=== PATIENT | female | born 1975 | race Hispanic/Latino ===

== ENCOUNTER 2016-11-27 14:36 | Emergency (ER) | payer SELFPAY ==
[2016-11-27] MEDS ORDERED: Morphine Sulfate 2 MG/ML SYRINGE ONE (15:30)
[2016-11-27 15:37] LABS: #Basophils 0.1 thou/uL (0.0-0.2); #Eosinphils 0.3 thou/uL (0.0-0.7); #Lymphocytes 3.2 thou/uL (1.20-3.40); #Monocytes 0.5 thou/uL (0.11-0.59); #Neutrophils 5.5 thou/uL (1.40-6.50); %Basophils 1.2 % (0.0-1.0); %Eosinophils 3.2 % (0.0-10.0); Hematocrit 41.6 % (36.0-47.0); Mean Platelet Volume 7.8 fL (7.4-10.4); Red Blood Cell (RBC) Count 4.71 mill/uL (4.20-5.40); White Blood Cell (WBC) Count 9.5 thou/uL (4.8-10.8)
[2016-11-27] MEDS ORDERED: Ondansetron HCl/PF 4 MG/2 ML Vial ONE (15:47)
[2016-11-27 15:57] LABS: ALT (SGPT) 30 U/L (0-55); AST (SGOT) 29 U/L (5-34); Alkaline Phosphatase 140 U/L (40-150); Anion Gap 15 mmol/L (10-20); BUN (Urea Nitrogen) 5 mg/dL (7.0-18.7); Bilirubin, Total 0.2 mg/dL (0.2-1.2); Calc. Creatinine Clearance 0 mL/min (70-130); Calcium 9.7 mg/dL (7.8-10.44); Carbon Dioxide 23 mmol/L (22-29); Chloride 106 mmol/L (98-107); Estimated GFR-MDRD 89; Globulin 3.1 g/dL (2.4-3.5); Protein, Total 7.4 g/dL (6.0-8.3)
[2016-11-27 16:22] LABS: Bilirubin Negative (Negative); Blood, Urine Negative (Negative); Glucose, Urine (Dipstick) Negative (Negative); Ketone, Urine Negative (Negative); Nitrite Negative (Negative); Protein, Urine (Dipstick) Negative (Neg-Trace); Urobilinogen 0.2 mg/dL (0.2-1.0)
--- NOTE | 2016-11-27 16:53 | CT ---
CT CHEST WITH CONTRAST CT ABDOMEN AND PELVIS WITH CONTRAST: History: Spiral CT of the chest, abdomen, and pelvis was done after a fall. Axial slices were acqu ired after giving IV contrast. Oral contrast was withheld by request. Coronal and sagittal reconst ructions were done afterwards. CT THORAX: The mediastinum appears normal. There is no sign of mediastinal hematoma or aortic injury. No medi astinal mass or adenopathy was seen. No pericardial effusion was seen. Coronary artery calcificati ons were not appreciated. The lungs are fully inflated and clear except for a little bit of depende nt atelectasis posteriorly. There is no sign of parenchymal contusion. The bony thorax appears int act with no sign of fracture in the ribs or spine. IMPRESSION: No acute traumatic findings. CT ABDOMEN AND PELVIS WITH CONTRAST: The liver, spleen, pancreas, adrenal glands, gallbladder, aorta and kidneys showed no acute findings . There was no sign of laceration of hematoma. The bowel is nondistended and shows no sign of obst ruction or inflammatory change. No free air or free fluid was seen. CT of the pelvis shows no free fluid or hematoma. The bony pelvis appears intact as does the lumbar spine. IMPRESSION: No acute traumatic findings. POS: HOME
--- NOTE | 2016-11-27 17:42 | ERRECORD ---
[facility] EMERGENCY RECORD PAST MEDICAL HISTORY (14:57 LGIB) MEDICAL HISTORY: No past medical history. FEMALE SURGICAL HISTORY: Surgical history of hysterectomy. RIGHT PARTIAL KNEE REPLACEMENT. Verified. PSYCHIATRIC HISTORY: Psychiatric history includes, anxiety. SOCIAL HISTORY: Patient drinks socially, rarely, Patient denies drug use, Patient currently uses tobacco, smokes cigarettes, Patient smokes 1/2 packs per day. KNOWN ALLERGIES Phenergan (Unconfirmed): - bp drops promethazine HCl (Unconfirmed) Sulfa (Sulfonamide Antibiotics) (Unconfirmed): Reaction: Hives CURRENT MEDICATIONS (15:01 LGIB) Zoloft: TABLET : Strength - 50 mg : ORAL Patient Dose: 50 mg Oral once a day. VITAL SIGNS VITAL SIGNS: BP: 129/90, Pulse: 105, Resp: 22, Pain: 10, O2 sat: 99 on Room Air, Time: 11/27/2016 15:01. (15:01 LGIB) BP: 117/78, Pulse: 72, Resp: 22, Pain: 8, O2 sat: 98 on Room Air, Time: 11/27/2016 16:06. (16:06 KMOR) BP: 143/86, Pulse: 87, Resp: 20, Pain: 8, O2 sat: 95 on Room Air, Time: 11/27/2016 16:39. (16:39 KMOR) BP: 129/77, Pulse: 68, Resp: 20 (Non-Labored), Temp: 98 (Oral), Pain: 3, O2 sat: 99 on Room Air, Time: 11/27/2016 17:00. (17:00 LGIB) RADIOLOGYINTERPRETATION (16:39 MBRI) CHEST: Chest CT negative, with contrast, no thoracic aortic dissection, no pneumothorax, no hemothorax, Neg. ABDOMEN: Abdomen/pelvis CT scan, with contrast negative, no injuries. 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 MEDICATION ADMINISTRATION SUMMARY Drug Name: morphine injection, Dose Ordered: 4 mg, Route: IV Push, Status: Given, Time: 16:29 11/27/2016, Drug Name: morphine injection, Dose Ordered: 6 mg, Route: IV Push, Status: Given, Time: 15:35 11/27/2016, Drug Name: sodium chloride 0.9 % intravenous, Dose Ordered: 1 L, Route: IV Fluid Infusion, Status: Given, Time: 15:32 11/27/2016, Drug Name: ondansetron HCl intravenous, Dose Ordered: 4 mg, Route: IV Push, Status: Given, Time: 15:32 11/27/2016, Detailed record available in Medication Service section. DOCTOR NOTES (16:40 MBRI) &a-1R&a+25V*p+0X*[id number]*c202B*c15G*c2P*p-0X&a-25V&a+1R Name: Vashti Mejia : 1975 F41 MedRec: [id number] AcctNum: [id number] Prepared: SunNov 27, 2016 17:37 by Interface Page 1 of 2 pMD [facility] EMERGENCY RECORD TEXT: Pt re-evaluated at this time and presents no concerning neck pain or tenderness. Pt is able to move neck in nml ROM without concerning findings of pain. Clincally pt is awake and alert and shows nml mentation without suspicion of altering condition or medications adversely effecting responses. No sig distracting injury is present and thus I have been able to clear the cspine clinically. Pt remains stable. Pt evaluated at this time and appears stable. No findings on my exam or studies to suggest sig injury or issue requiring hospitalization or intervention/consultation. Plan of care discussed with pt and questions answered. Pt was informed of reasons for follow-up and strict reasons for return and they stated understanding. Pt is stable for d/c home at this time. PROBLEM LIST No recorded problems DIAGNOSIS (17:34 KMOR) FINAL: PRIMARY: Low back contusion, ADDITIONAL: fall. PRESCRIPTION (16:41 MBRI) acetaminophen-codeine: TABLET : 300 mg-30 mg : ORAL : Quantity: 1 Unit: tab(s) Route: ORAL Schedule: every 4 hours prn Dispense: 20 May substitute. Refills: No Refills . NOTES: No refills. Flexeril: TABLET : 10 mg : ORAL : Quantity: 1 Unit: tab(s) Route: ORAL Schedule: every 8 hours PRN Dispense: 30 May substitute. Refills: No Refills . NOTES: ^s=No refills No refills. Motrin: TABLET : 600 mg : ORAL : Quantity: 1 Unit: tab(s) Route: ORAL Schedule: every 6 hours PRN Dispense: 60 May substitute. Refills: No Refills . NOTES: ^s=^s=No refills No refills No refills. DISPOSITION PATIENT: Disposition Type: Discharge, Disposition: *Discharge Home. (17:33 KMOR) Patient left the department. (17:35 KMOR) Benoit: KMOR=HAMZAH Harper, Vandana LGIB=HAMZAH Howard, Zully MBRI=DO Cervantes Matthew &a-1R&a+25V*p+0X*[id number]*c202B*c15G*c2P*p-0X&a-25V&a+1R Name: Vashti Mejia : 1975 F41 MedRec: [id number] AcctNum: [id number] Prepared: SunNov 27, 2016 17:37 by Interface Page 2 of 2 pMD MTDD
--- NOTE | 2016-11-27 17:49 | PICIS ---
[facility] EMERGENCY RECORD GREET (14:53 ANTH) GREET: Greet: SunNov 27, 2016 14:53. TRIAGE (SunNov 27, 2016 14:55 KMOR) TRIAGE NOTES: SIDE PAIN SP FALL. (SunNov 27, 2016 14:55 KMOR) PATIENT: NAME: Vashti Mejia, AGE: 41, GENDER: female, : [facility] 1975, TIME OF GREET: SunNov 27, 2016 14:52, PREFERRED LANGUAGE: Mauritian, ETHNICITY: or , ECODE BILLING MAP: [facility], SSN: [id number], Zip Code: [address], KG WEIGHT: 68.04, PHONE: , , , PERSON ID: [id number], PAYMENT: [employer] Self Pay, PCP: ANNIAK. (SunNov 27, 2016 14:55 KMOR) COMPLAINT: SIDE PAIN. (SunNov 27, 2016 14:55 KMOR) ADMISSION: URGENCY: 3 Urgent, ADMISSION SOURCE: Home, TRANSPORT: CAR, BED: ER -05. (SunNov 27, 2016 14:55 KMOR) PROVIDERS: TRIAGE NURSE: Vandana Harper RN. (SunNov 27, 2016 14:55 KMOR) PREVIOUS VISIT ALLERGIES: Phenergan, Sulfa (Sulfonamide Antibiotics). (SunNov 27, 2016 14:55 KMOR) Phenergan, Sulfa (Sulfonamide Antibiotics). (14:57 LGIB) KNOWN ALLERGIES Phenergan (Unconfirmed): - bp drops promethazine HCl (Unconfirmed) Sulfa (Sulfonamide Antibiotics) (Unconfirmed): Reaction: Hives CURRENT MEDICATIONS (15:01 LGIB) Zoloft: TABLET : Strength - 50 mg : ORAL Patient Dose: 50 mg Oral once a day. VITAL SIGNS VITAL SIGNS: BP: 129/90, Pulse: 105, Resp: 22, Pain: 10, O2 sat: 99 on Room Air, Time: 11/27/2016 15:01. (15:01 LGIB) BP: 117/78, Pulse: 72, Resp: 22, Pain: 8, O2 sat: 98 on Room Air, Time: 11/27/2016 16:06. (16:06 KMOR) BP: 143/86, Pulse: 87, Resp: 20, Pain: 8, O2 sat: 95 on Room Air, Time: 11/27/2016 16:39. (16:39 KMOR) BP: 129/77, Pulse: 68, Resp: 20 (Non-Labored), Temp: 98 (Oral), Pain: 3, O2 sat: 99 on Room Air, Time: 11/27/2016 17:00. (17:00 LGIB) NURSING ASSESSMENT: BACK (15:05 LGIB) CONSTITUTIONAL: Complex assessment performed, Patient arrives ambulatory, Gait steady, History obtained from patient, Patient appears, in distress due to pain, Patient cooperative, Patient alert, Oriented to person, place and time, Skin warm, Skin dry, Skin normal in color, Mucous membranes pink, Mucous membranes moist, Patient is well-groomed, Patient complains of right rib pain, fell down 3-4 [address] stairs and having right sided rib pain. &a-1R&a+25V*p+0X*h7824J*c202B*c15G*c2P*p-0X&a-25V&a+1R Name: Vashti Mejia : 1975 F41 MedRec: [id number] AcctNum: [id number] Prepared: SunNov 27, 2016 17:43 by Interface Page 1 of 10 pMD [facility] EM[facility] RECORD denies hitting head, no LOC, no vomiting. Denies head or neck pain at this time. PAIN: aching pain, right ribs, Onset of pain 11/27/2016 1430, on a scale 0-10 patient rates pain as 8, pain worse with movement, Nothing has been tried to alleviate the pain. BACK: Right radial pulse +3(easily palpated, considered normal), Left radial pulse +3(easily palpated, considered normal), Left dorsalis pedis pulse +3(easily palpated, considered normal), Right dorsalis pedis pulse +3(easily palpated, considered normal), Notes: tender to right ribs. NECK: Neck assessment findings include trachea midline. SAFETY: Side rails up, Cart/Stretcher in lowest position, Family at bedside, Call light within reach, Hospital ID band on. NURSING PROCEDURE: DISCHARGE NOTE (17:05 LGIB) DISCHARGE: Patient discharged to home, ambulating without assistance, family driving, accompanied by //partner, Summary of Care printed/ provided, Patient requested and was provided an electronic copy of Discharge Instructions, Discharge instructions given to patient, Simple or moderate discharge teaching performed, Prescriptions given and instructions on side effects given, Above person(s) verbalized understanding of discharge instructions and follow-up care, Patient treated and evaluated by physician. BELONGINGS: Belongings and valuables with patient at time of discharge include:, Belongings remain with patient, Valuables remain with patient. NURSING PROCEDURE: ELIMINATION (16:06 KMOR) PATIENT IDENTIFIER: Patient actively involved in identification process, Patient's identity verified by patient stating name, Patient's identity verified by patient stating date. ELIMINATION: Patient given fracture avila, Urine output (mL) 300ml, Urine specimen collected, labeled in the presence of the patient and sent to lab. NURSING PROCEDURE: IV PATIENT IDENITIFIER: Patient actively involved in identification process, Patient's identity verified by patient stating name, Patient's identity verified by hospital ID bracelet. (15:24 EPRA) Patient actively involved in identification process, Patient's identity verified by patient stating name, Patient's identity verified by patient stating date. (16:52 KMOR) IV SITE 1: IV therapy indicated for hydration, IV therapy indicated for medication administration, IV established, to the right antecubital, using an 18 gauge catheter, in two attempts, IV site prepped with chloraprep, Saline lock established, Flushed with normal saline (mls): 5 mL, Labs drawn at time of placement, labeled in the presence of the patient and sent to lab, Notes: Pressure and dressing applied. (15:24 EPRA) &a-1R&a+25V*p+0X*t7585M*c202B*c15G*c2P*p-0X&a-25V&a+1R Name: Vashti Mejia : 1975 F41 MedRec: [id number] AcctNum: [id number] Prepared: SunNov 27, 2016 17:43 by Interface Page 2 of 10 pMD [facility] EMERGENC[facility] RECORD FOLLOW-UP SITE 1: After procedure, 2x3 ensure dressing applied, After procedure, no drainage at IV site, After procedure, no swelling at IV site, After procedure, no redness at IV site. (15:24 EPRA) After procedure, no drainage at IV site, After procedure, no swelling at IV site, After procedure, no redness at IV site, IV discontinued, due to patient being discharged, catheter intact. (16:52 KMOR) NOTES: Patient tolerated procedure well. (16:52 KMOR) SAFETY: Cart/Stretcher in lowest position, Family at bedside, Call light within reach, Hospital ID band on. (15:24 EPRA) NURSING PROCEDURE: NURSE NOTES NURSES NOTES: Notes: Patient requesting something to drink..instructed patient that she is NPO at this time. Patient verbalized understanding. Family at bedside. (15:35 EPRA) Notes: Dr. cervantes in to review results with patient, Ice water provided to patient. (16:35 KMOR) Notes: Patient assisted up in bed and dressed, ambulatory to bathroom with at side. (16:51 KMOR) NURSING PROCEDURE: TRANSPORT TO TESTS PATIENT IDENTIFIER: Patient actively involved in identification process, Patient's identity verified by patient stating name, Patient's identity verified by hospital ID bracelet. (15:46 EPRA) TRANSPORT TO TESTS: Patient transported to CT scan, via cart, Accompanied by x-ray simulation technician, transported by HAMZAH Johnson. (15:46 EPRA) FOLLOW-UP: After procedure, patient returned to emergency department. (15:57 KMOR) NURSING PROCEDURE: URINE COLLECTION (16:06 KMOR) PATIENT IDENTIFIER: Patient actively involved in identification process, Patient's identity verified by patient stating name, Patient's identity verified by patient stating date. URINE COLLECTION FEMALE: Urine collected by void, output amount (mL) 300ml, urine yellow in color, and clear, Specimen labeled in the presence of the patient and sent to lab. ORDER DETAILS Order Name: CBC with Differential, Status: Active, Time: 15:15 11/27/2016, User: JOSE ANTONIO, - Ordered for: DO Cervantes Matthew, - Entered by: DO Cervantes Matthew - Mon Nov 27, 2016 15:15, - Quantity: 1, Order Name: Comprehensive Metabolic Panel, Status: Active, Time: 15:15 11/27/2016, User: JOSE ANTONIO, - Ordered for: DO Cervantes Matthew, - Entered by: DO Cervantes Matthew - SunNov 27, 2016 15:15, - Quantity: 1, Order Name: CT Chest Abd Pelvis W Con(Trauma), Status: Active, Time: &a-1R&a+25V*p+0X*c2503L*c202B*c15G*c2P*p-0X&a-25V&a+1R Name: Vashti Mejia : 1975 F41 MedRec: [id number] AcctNum: [id number] Prepared: SunNov 27, 2016 17:43 by Interface Page 3 of 10 pMD [facility] EM[facility] RECORD 15:17 11/27/2016, User: JOSE ANTONIO, - Ordered for: DO Cervantes Matthew, - Entered by: DO Cervantes Matthew - SunNov 27, 2016 15:17, - Quantity: 1, Order Name: Diet: Nothing by Mouth (NPO), Status: Done, Time: 15:46 11/27/2016, User: EPRA, - Ordered for: DO Cervantes Matthew, - Entered by: DO Cervantes Matthew - SunNov 27, 2016 15:15, - Quantity: 1, Order Name: Test, Serum (BHCG), Status: Active, Time: 15:15 11/27/2016, User: JOSE ANTONIO, - Ordered for: DO Cervantes Matthew, - Entered by: DO Cervantes Matthew - SunNov 27, 2016 15:15, - Quantity: 1, Order Name: SALINE LOCK, Status: Done, Time: 15:25 11/27/2016, User: SEAN, - Ordered for: DO Cervantes Matthew, - Entered by: DO Cervantes Matthew - SunNov 27, 2016 15:15, - Quantity: 1, Order Name: Urinalysis w/ Rflx Microscopic, Status: Active, Time: 15:15 11/27/2016, User: JOSE ANTONIO, - Ordered for: DO Cervantes Matthew, - Entered by: DO Cervantes Matthew - SunNov 27, 2016 15:15, - Quantity: 1. MEDICATION ADMINISTRATION SUMMARY Drug Name: morphine injection, Dose Ordered: 4 mg, Route: IV Push, Status: Given, Time: 16:29 11/27/2016, Drug Name: morphine injection, Dose Ordered: 6 mg, Route: IV Push, Status: Given, Time: 15:35 11/27/2016, Drug Name: sodium chloride 0.9 % intravenous, Dose Ordered: 1 L, Route: IV Fluid Infusion, Status: Given, Time: 15:32 11/27/2016, Drug Name: ondansetron HCl intravenous, Dose Ordered: 4 mg, Route: IV Push, Status: Given, Time: 15:32 11/27/2016, Detailed record available in Medication Service section. MEDICATION SERVICE morphine injection: Order: morphine injection (morphine sulfate) - Dose: 6 mg : IV Push Schedule: Now Ordered by: Kaushal Cervantes DO Entered by: Kaushal Cervantes DO SunNov 27, 2016 15:17 , Acknowledged by: Zully Howard RN SunNov 27, 2016 15:29 Documented as given by: Nathalie Larsen RN SunNov 27, 2016 15:35 Patient, Medication, Dose, Route and Time verified prior to administration. IV SITE #1 IVP, initial medication, Slowly, Awake and alert- acceptable, Connections checked prior to administration, Line traced prior to administration, Catheter placement confirmed via flush prior &a-1R&a+25V*p+0X*j5930A*c202B*c15G*c2P*p-0X&a-25V&a+1R Name: Vashti Mejia : 1975 F41 MedRec: [id number] AcctNum: [id number] Prepared: SunNov 27, 2016 17:43 by Interface Page 4 of 10 pMD [facility] EMERGENCY RECORD to administration, IV site without signs or symptoms of infiltration during medication administration, No swelling during administration, No drainage during administration, IV flushed after administration, Correct patient, time, route, dose and medication confirmed prior to administration, Patient advised of actions and side-effects prior to administration, Allergies confirmed and medications reviewed prior to administration, Patient in position of comfort, Cart in lowest position, Family at bedside, Diluted in 8 mL NS. : Follow Up : Response assessment performed, No signs or symptoms of allergic reaction noted, _IV SITE #1:_. (16:00 KMOR) morphine injection: Order: morphine injection (morphine sulfate) - Dose: 4 mg : IV Push Schedule: Now Ordered by: Kaushal Cervantes DO Entered by: Kaushal Cervantes DO SunNov 27, 2016 16:22 , Acknowledged by: Vandana Harper RN SunNov 27, 2016 16:24 Documented as given by: Vandana Harper RN SunNov 27, 2016 16:29 Patient, Medication, Dose, Route and Time verified prior to administration. Amount given: 4mg, IV SITE #1 IVP, repeat same medication, Slowly, Awake and alert- acceptable, Catheter placement confirmed via flush prior to administration, IV site without signs or symptoms of infiltration during medication administration, No swelling during administration, No drainage during administration, IV flushed after administration, Correct patient, time, route, dose and medication confirmed prior to administration, Patient advised of actions and side-effects prior to administration, Allergies confirmed and medications reviewed prior to administration, Patient in position of comfort, Side rails up, Cart in lowest position, Family at bedside. : Follow Up : Response assessment performed, No signs or symptoms of allergic reaction noted, Decreased pain, _IV SITE #1:_. (16:45 KMOR) ondansetron HCl intravenous: Order: ondansetron HCl intravenous (ondansetron HCl) - Dose: 4 mg : IV Push Schedule: Now Ordered by: Kaushal Cervantes DO Entered by: Kaushal Cervantes DO SunNov 27, 2016 15:18 , Acknowledged by: uZlly Howard RN SunNov 27, 2016 15:29 Documented as given by: Nathalie Larsen RN SunNov 27, 2016 15:32 Patient, Medication, Dose, Route and Time verified prior to administration. IV SITE #1 IVP, initial medication, Slowly, Connections checked prior to administration, Line traced prior to administration, Catheter placement confirmed via flush prior to administration, IV site without signs or symptoms of infiltration during medication administration, No swelling during administration, No drainage during administration, IV flushed after administration, Correct patient, time, route, dose and medication confirmed prior to administration, Patient advised of actions and side-effects prior to administration, Allergies confirmed and medications reviewed prior to administration, &a-1R&a+25V*p+0X*t4241S*c202B*c15G*c2P*p-0X&a-25V&a+1R Name: Vashti Mejia : 1975 F41 MedRec: [id number] AcctNum: [id number] Prepared: SunNov 27, 2016 17:43 by Interface Page 5 of 10 pMD [facility] EMERGENC[facility] RECORD Patient in position of comfort, Cart in lowest position, Family at bedside. : Follow Up : Response assessment performed, No signs or symptoms of allergic reaction noted, _IV SITE #1:_. (16:00 KMOR) sodium chloride 0.9 % intravenous: Order: sodium chloride 0.9 % intravenous (0.9 % sodium chloride) - Dose: 1 L : IV Fluid Infusion Ordered by: Kaushal Cervantes DO Entered by: Kaushal Cervantes DO SunNov 27, 2016 15:17 , Acknowledged by: Zully Howard RN SunNov 27, 2016 15:29 Documented as given by: Nathalie Larsen RN SunNov 27, 2016 15:32 Patient, Medication, Dose, Route and Time verified prior to administration. IV SITE #1 IV fluids established for hydration, IV SITE #1 into right antecubital, IV SITE #1 1st bag hung, amount 1 Liter hung, IV SITE #1 bolus of 1000 ml established, IV SITE #1 Rate of bolus, wide open, via primary tubing, Connections checked prior to administration, Line traced prior to administration, Catheter placement confirmed via flush prior to administration, IV site without signs or symptoms of infiltration during medication administration, No swelling during administration, No drainage during administration, IV flushed after administration, Correct patient, time, route, dose and medication confirmed prior to administration, Patient advised of actions and side-effects prior to administration, Allergies confirmed and medications reviewed prior to administration, Patient in position of comfort, Cart in lowest position, Family at bedside. : Follow Up : _IV SITE #1:_, IV fluid infusion continued upon transfer from emergency department, on SunNov 27, 2016 16:30, ., Total amount infused: 1000ml, IV Discontinued with catheter intact, IV Line flushed after administration. (16:30 KMOR) PAST MEDICAL HISTORY (14:57 LGIB) MEDICAL HISTORY: No past medical history. FEMALE SURGICAL HISTORY: Surgical history of hysterectomy. RIGHT PARTIAL KNEE REPLACEMENT. Verified. PSYCHIATRIC HISTORY: Psychiatric history includes, anxiety. SOCIAL HISTORY: Patient drinks socially, rarely, Patient denies drug use, Patient currently uses tobacco, smokes cigarettes, Patient smokes 1/2 packs per day. LAB INTERPRETATION (16:39 MBRI) INTERPRETATION: I reviewed the lab results. EVENTS TRANSFER: Triage to Emergency Emergency Room -05. (SunNov 27, 2016 14:55 KMOR) Emergency Emergency Room -05 to -01. (15:40 KMOR) Emergency Emergency Room -01 to Radiology (Hold Bed). (15:48 EPRA) Return to Emergency Emergency Room -01. (15:57 KMOR) &a-1R&a+25V*p+0X*s0415Q*c202B*c15G*c2P*p-0X&a-25V&a+1R Name: Vashti Mejia : 1975 F41 MedRec: [id number] AcctNum: [id number] Prepared: SunNov 27, 2016 17:43 by Interface Page 6 of 10 pMD [facility] EMERGENCY RECORD Emergency Emergency Room -01 to Holding. (17:07 LGIB) Removed from Emergency Holding. (17:35 KMOR) RADIOLOGYINTERPRETATION (16:39 MBRI) CHEST: Chest CT negative, with contrast, no thoracic aortic dissection, no pneumothorax, no hemothorax, Neg. ABDOMEN: Abdomen/pelvis CT scan, with contrast negative, no injuries. [employer]: Preliminary review of CT scans by, Radiologist. O2SAT INTERPRETATION (16:35 MBRI) O2SAT: Oxygen saturation interpretation: Normal. DOCTOR NOTES (16:40 MBRI) TEXT: Pt re-evaluated at this time and presents no concerning neck pain or tenderness. Pt is able to move neck in nml ROM without concerning findings of pain. Clincally pt is awake and alert and shows nml mentation without suspicion of altering condition or medications adversely effecting responses. No sig distracting injury is present and thus I have been able to clear the cspine clinically. Pt remains stable. Pt evaluated at this time and appears stable. No findings on my exam or studies to suggest sig injury or issue requiring hospitalization or intervention/consultation. Plan of care discussed with pt and questions answered. Pt was informed of reasons for follow-up and strict reasons for return and they stated understanding. Pt is stable for d/c home at this time. PROBLEM LIST No recorded problems DIAGNOSIS (17:34 KMOR) FINAL: PRIMARY: Low back contusion, ADDITIONAL: fall. DISPOSITION PATIENT: Disposition Type: Discharge, Disposition: *Discharge Home. (17:33 KMOR) Patient left the department. (17:35 KMOR) INSTRUCTION (16:42 MBRI) DISCHARGE: FALL PREVENTION, BACK CONTUSION. FOLLOWUP: [facility], [facility], [address] [place] [address] [place] [address], , Follow up with Primary Care Physician in 7 days. SPECIAL: Please return for any further issues or concerns, we would be happy to see you. We hope you feel better soon. Follow-up with your primary physician as needed Tylenol or Advil for Pain &a-1R&a+25V*p+0X*g3304S*c202B*c15G*c2P*p-0X&a-25V&a+1R Name: Vasthi Mejia : 1975 F41 MedRec: [id number] AcctNum: [id number] Prepared: SunNov 27, 2016 17:43 by Interface Page 7 of 10 pMD [facility] EM[facility] RECORD May return to work. PRESCRIPTION (16:41 MBRI) acetaminophen-codeine: TABLET : 300 mg-30 mg : ORAL : Quantity: 1 Unit: tab(s) Route: ORAL Schedule: every 4 hours prn Dispense: 20 May substitute. Refills: No Refills . NOTES: No refills. Flexeril: TABLET : 10 mg : ORAL : Quantity: 1 Unit: tab(s) Route: ORAL Schedule: every 8 hours PRN Dispense: 30 May substitute. Refills: No Refills . NOTES: ^s=No refills No refills. Motrin: TABLET : 600 mg : ORAL : Quantity: 1 Unit: tab(s) Route: ORAL Schedule: every 6 hours PRN Dispense: 60 May substitute. Refills: No Refills . NOTES: ^s=^s=No refills No refills No refills. IMAGING *DISCHARGE INSTRUCTIONS RECEIPT: Image captured from scanner. (17:05 LGIB) Page 2 added. Image captured from scanner. (17:06 LGIB) *SUPPLY CHARGE SHEET: Image captured from scanner. (17:06 LGIB) ADMIN (17:35 KMOR) DIGITAL SIGNATURE: HAMZAH Harper, Vandana. RESULTS (16:40 MBRI) LABORATORY: Urinalysis w/ Rflx Microscopic Collection DT: SunNov 27, 2016 16:18, Color Light yellow , Range (Yellow), Clarity Clear , Range (Clear), Specific Duncan, Urine 1.015 , Range (1.005-1.030), pH, Urine 7.5 , Range (5.0-9.0), Leukocyte Negative , Range (Negative), Nitrite Negative , Range (Negative), Protein, Urine (Dipstick) Negative mg/dL, Range (Neg-Trace), Glucose, Urine (Dipstick) Negative mg/dL, Range (Negative), Ketone, Urine Negative mg/dL, Range (Negative), Urobilinogen 0.2 mg/dL, Range (0.2-1.0), Bilirubin Negative , Range (Negative), Blood, Urine Negative , Range (Negative). Comprehensive Metabolic Panel Collection DT: SunNov 27, 2016 15:34, Sodium 140 mmol/L, Range (136-145), Potassium 3.6 mmol/L, Range (3.5-5.1), Chloride 106 mmol/L, Range (98-107), Carbon Dioxide 23 mmol/L, Range (22-29), Anion Gap 15 mmol/L, Range (10-20), &a-1R&a+25V*p+0X*o7601E*c202B*c15G*c2P*p-0X&a-25V&a+1R Name: Vashti Mejia : 1975 F41 MedRec: [id number] AcctNum: [id number] Prepared: SunNov 27, 2016 17:43 by Interface Page 8 of 10 pMD [facility] EM[facility] RECORD *BUN (Urea Nitrogen) 5 - L mg/dL, Range (7.0-18.7), Creatinine 0.72 mg/dL, Range (0.6-1.1), Estimated GFR-MDRD 89 , Reference Range for Estimated GFR: Greater than 90, mL/min/1.73 m2 NOTE: The MDRD equation has not been validated for use, with the elderly (over 70 years of age), women, patients with, serious comorbid condition or persons with extremes of body size, muscle, mass, or nutritional status. , Glucose 99 mg/dL, Range (70-105), Calcium 9.7 mg/dL, Range (7.8-10.44), Bilirubin, Total 0.2 mg/dL, Range (0.2-1.2), Protein, Total 7.4 g/dL, Range (6.0-8.3), NOTE: Plasma values are generally 0.3 to 0.5 g/dL higher than serum values, due to the presence of fibrinogen. , Albumin 4.3 g/dL, Range (3.5-5.0), Globulin 3.1 g/dL, Range (2.4-3.5), Alb/Glob Ratio 1.4 g/dL, Range (1.2-2.2), Alkaline Phosphatase 140 U/L, Range (40-150), AST (SGOT) 29 U/L, Range (5-34), ALT (SGPT) 30 U/L, Range (0-55). Test, Serum (BHCG) Collection DT: SunNov 27, 2016 15:34, BHCG - Serum NEGATIVE , Range (NEGATIVE), Method of sensitivity- Indeterminant: results should be repeated, after 48 hours. Positive: results may be detected as early as 4-5 days before a first missed menses. Elimination of BHCG-, Elimination following first trimester D&C: 29-44 Days , Elimination following term : 8-24 Days . CBC with Differential Collection DT: SunNov 27, 2016 15:34, White Blood Cell (WBC) Count 9.5 thou/uL, Range (4.8-10.8), Red Blood Cell (RBC) Count 4.71 mill/uL, Range (4.20-5.40), Hemoglobin 13.3 g/dL, Range (12.0-16.0), Hematocrit 41.6 %, Range (36.0-47.0), Mean Corpuscular Volume 88.3 fl, Range (81.0-99.0), Mean Corpuscular Hemoglobin 28.2 pg, Range (27.0-31.0), Mean Corpuscular HGB CONC 32.0 g/dL, Range (32.0-36.0), RBC Distribution Width 12.6 %, Range (11.5-14.5), *Platelet Count 439 - H thou/uL, Range (130-400), Mean Platelet Volume 7.8 fL, Range (7.4-10.4), %Neutrophils 57.3 %, Range (42.0-75.0), %Lymphocytes 33.3 %, Range (21.0-51.0), %Monocytes 5.0 %, Range (0.0-10.0), %Eosinophils 3.2 %, Range (0.0-10.0), *%Basophils 1.2 - H %, Range (0.0-1.0), #Neutrophils 5.5 thou/uL, Range (1.40-6.50), &a-1R&a+25V*p+0X*c9692P*c202B*c15G*c2P*p-0X&a-25V&a+1R Name: Vashti Mejia : 1975 F41 MedRec: [id number] AcctNum: [id number] Prepared: SunNov 27, 2016 17:43 by Interface Page 9 of 10 pMD [facility] EM[facility] RECORD #Lymphocytes 3.2 thou/uL, Range (1.20-3.40), #Monocytes 0.5 thou/uL, Range (0.11-0.59), #Eosinphils 0.3 thou/uL, Range (0.0-0.7), #Basophils 0.1 thou/uL, Range (0.0-0.2). Benoit: HIMA=Deondre, KENAR, Terra BENSON=HAMZAH Larsen, Nathalie LOVINGOR=HAMZAH Harper, Vandana WALKER=HAMZAH Howard, Zully BRADY=DO Cervantes Matthew &a-1R&a+25V*p+0X*b4072S*c202B*c15G*c2P*p-0X&a-25V&a+1R Name: Vashti Mejia : 1975 F41 MedRec: [id number] AcctNum: [id number] Prepared: SunNov 27, 2016 17:43 by Interface Page 10 of 10 pMD [facility] MEDICATION RECONCILIATION You were seen in the Emergency Department on: SunNov 27, 2016 KNOWN ALLERGIES Phenergan (Unconfirmed): - bp drops promethazine HCl (Unconfirmed) Sulfa (Sulfonamide Antibiotics) (Unconfirmed): Reaction: Hives MEDICATIONS GIVEN WHILE IN THE EMERGENCY DEPARTMENT morphine injection (morphine sulfate) - Dose: 6 milligram(s) : IV Push sodium chloride 0.9 % intravenous (0.9 % sodium chloride) - Dose: 1 liter(s) : IV Fluid Infusion ondansetron HCl intravenous (ondansetron HCl) - Dose: 4 milligram(s) : IV Push morphine injection (morphine sulfate) - Dose: 4 milligram(s) : IV Push HOME MEDICATIONS CONTINUE PRESCRIBED Zoloft : TABLET : Strength - 50 mg : ORAL Continue as prescribed Patient had been takin mg Oral once a day. Notes from the emergency department Reviewed with patient PRESCRIPTIONS (3) Printed (3) acetaminophen-codeine : TABLET : 300 mg-30 mg : ORAL Quantity: 1, Unit: tab(s), Route: ORAL, Schedule: every 4 hours prn, Dispense: 20 Flexeril : TABLET : 10 mg : ORAL Quantity: 1, Unit: tab(s), Route: ORAL, Schedule: every 8 hours PRN, Dispense: 29 &a-1R&a+25V*p+0X*[id number]*c202B*c15G*c2P*p-0X&a-25V&a+1R Name: Vashti Mejia : 1975 [id number] MedRec: [id number] AcctNum: [id number] Prepared: SunNov 27, 2016 17:43 by Interface pMD OLIVIA
== END 2016-11-27 17:04 | disposition home or self-care (01) ==
LOC: BURERS 14:36
DX: S30.0XXA Contusion of lower back and pelvis, initial encounter (principal); F41.9 Anxiety disorder, unspecified; F17.210 Nicotine dependence, cigarettes, uncomplicated; W10.9XXA Fall (on) (from) unspecified stairs and steps, initial encounter
CPT/HCPCS: 71260; 74177; 80053; 81003; 84703; 85025; 96361; 96374; 96375; 96376; J2270; J2405

== ENCOUNTER 2017-01-31 16:54 | Emergency (ER) | payer SELFPAY ==
[2017-01-31] MEDS ORDERED: diphenhydrAMINE HCl 50 MG/ML 1 ML VIAL ONE (17:42)
[2017-01-31] MEDS ORDERED: Metoclopramide HCl 10 MG/2 ML VIAL ONE (17:42)
[2017-01-31] MEDS ORDERED: methylPREDNISolone Sod Succ/PF 125 MG/2 ML VIAL ONE (18:25)
[2017-01-31] MEDS ORDERED: Fentanyl 100 MCG/2 ML VIAL ONE (18:25)
== END 2017-01-31 18:52 | disposition home or self-care (01) ==
LOC: BURERS 16:54
DX: G43.909 Migraine, unspecified, not intractable, without status migrainosus (principal); F41.9 Anxiety disorder, unspecified; F17.210 Nicotine dependence, cigarettes, uncomplicated
CPT/HCPCS: 94760; 96361; 96374; 96375; J1200; J2765; J2930; J3010

== ENCOUNTER 2017-03-30 20:42 | Emergency (ER) | payer SELFPAY ==
[2017-03-30 21:22] LABS: Bilirubin Negative (Negative); Blood, Urine Negative (Negative); Clarity Clear (Clear); Glucose, Urine (Dipstick) Negative (Negative); Leukocyte Trace (Negative); Nitrite Negative (Negative); Protein, Urine (Dipstick) Negative (Neg-Trace); Urobilinogen 0.2 mg/dL (0.2-1.0)
[2017-03-30 21:28] LABS: Bacteria/HPF Rare-Few HPF (None Seen); RBC/HPF None Seen HPF (0-3); Squamous Epithelial None Seen HPF (0-3); WBC/HPF 0-3 HPF (0-3)
[2017-03-30] MEDS ORDERED: Ketorolac Tromethamine 30 MG/ML VIAL ONE (21:31)
[2017-03-30] MEDS ORDERED: Cyclobenzaprine 10 MG TAB ONE (21:45)
[2017-03-30 21:57] LABS: #Basophils 0.1 thou/uL (0.0-0.2); #Eosinphils 0.3 thou/uL (0.0-0.7); #Lymphocytes 4.3 thou/uL (1.20-3.40); #Monocytes 0.8 thou/uL (0.11-0.59); %Basophils 0.9 % (0.0-1.0); %Eosinophils 1.9 % (0.0-10.0); %Lymphocytes 29.7 % (21.0-51.0); %Monocytes 5.2 % (0.0-10.0); %Neutrophils 62.2 % (42.0-75.0); Hemoglobin 14.1 g/dL (12.0-16.0); Mean Corpuscular HGB CONC 34.8 g/dL (32.0-36.0); Mean Corpuscular Hemoglobin 30.6 pg (27.0-31.0); Mean Corpuscular Volume 87.8 fl (81.0-99.0); Mean Platelet Volume 7.8 fL (7.4-10.4); Platelet Count 377 thou/uL (130-400); RBC Distribution Width 13.2 % (11.5-14.5); White Blood Cell (WBC) Count 14.4 thou/uL (4.8-10.8)
[2017-03-30 22:11] LABS: Anion Gap 14 mmol/L (10-20); BUN (Urea Nitrogen) 9 mg/dL (7.0-18.7); Calc. Creatinine Clearance 0 mL/min (70-130); Calcium 9.4 mg/dL (7.8-10.44); Carbon Dioxide 25 mmol/L (22-29); Chloride 105 mmol/L (98-107); Estimated GFR-MDRD 85; Glucose 84 mg/dL (70-105); Potassium 3.6 mmol/L (3.5-5.1); Sodium 140 mmol/L (136-145)
[2017-03-30] MEDS ORDERED: Fentanyl 100 MCG/2 ML VIAL ONE (22:18)
[2017-03-30] MEDS ORDERED: Ondansetron HCl/PF 4 MG/2 ML Vial ONE (22:18)
--- NOTE | 2017-03-30 22:48 | RAD ---
TWO VIEWS CHEST 03/30/17 HISTORY: Chest pain. PA and lateral views of the chest is obtained. The lungs are well aerated. No evidence of active intrathoracic disease seen. No evidence of effusio ns, pneumonia or pneumothorax seen. IMPRESSION: Unremarkable two views chest. POS: [facility]
[2017-03-30] MEDS ORDERED: HYDROcodone/Acetaminophen 5/325 mg Tablet ONE (23:01)
== END 2017-03-30 23:07 | disposition home or self-care (01) ==
LOC: BURERS 20:42
DX: S23.3XXA Sprain of ligaments of thoracic spine, initial encounter (principal); E78.5 Hyperlipidemia, unspecified; E78.00 Pure hypercholesterolemia, unspecified; F17.210 Nicotine dependence, cigarettes, uncomplicated; F41.9 Anxiety disorder, unspecified; Z79.899 Other long term (current) drug therapy
CPT/HCPCS: 71020; 80048; 81003; 81015; 85025; 96374; 96375; J1885; J2405; J3010

== ENCOUNTER 2017-05-16 23:23 | Emergency (ER) | payer SELFPAY ==
[2017-05-16] MEDS ORDERED: Ketorolac Tromethamine 60 MG/2 ML VIAL ONE (23:40)
[2017-05-16] MEDS ORDERED: diphenhydrAMINE HCl 25 MG CAP ONE (23:40)
[2017-05-16] MEDS ORDERED: Dexamethasone 4 mg/ml Vial ONE (23:40)
== END 2017-05-17 00:02 | disposition home or self-care (01) ==
LOC: BURERS 23:23
DX: S80.861A Insect bite (nonvenomous), right lower leg, initial encounter (principal); S80.862A Insect bite (nonvenomous), left lower leg, initial encounter; E78.5 Hyperlipidemia, unspecified; F41.9 Anxiety disorder, unspecified; F17.210 Nicotine dependence, cigarettes, uncomplicated; Z79.899 Other long term (current) drug therapy; W57.XXXA Bitten or stung by nonvenomous insect and other nonvenomous arthropods, initial encounter
CPT/HCPCS: 96372; J1100; J1885

== ENCOUNTER 2017-07-03 21:44 | Emergency (ER) | payer OTHER, SELFPAY ==
[2017-07-03] MEDS ORDERED: diphenhydrAMINE HCl 50 MG/ML 1 ML VIAL ONE (21:59)
[2017-07-03] MEDS ORDERED: Fluorescein Opthalmic Strip ONE (22:54)
[2017-07-03] MEDS ORDERED: Prochlorperazine 10 MG/2 ML VIAL ONE (22:56)
[2017-07-04] MEDS ORDERED: Ketorolac Tromethamine 30 MG/ML VIAL ONE (00:29)
== END 2017-07-04 00:24 | disposition home or self-care (01) ==
LOC: BURERS 21:44
DX: T20.16XA Burn of first degree of forehead and cheek, initial encounter (principal); T26.01XA Burn of right eyelid and periocular area, initial encounter; E78.5 Hyperlipidemia, unspecified; F17.210 Nicotine dependence, cigarettes, uncomplicated; Z79.899 Other long term (current) drug therapy; X10.2XXA Contact with fats and cooking oils, initial encounter; Y93.G9 Activity, other involving cooking and grilling; Y92.69 Other specified industrial and construction area as the place of occurrence of the external cause; Y99.0 Civilian activity done for income or pay
CPT/HCPCS: 96374; 96375; 96376; J0780; J1200; J1885; J2270

== ENCOUNTER 2017-07-11 23:40 | Emergency (ER) | payer SELFPAY ==
[2017-07-12] MEDS ORDERED: clonazePAM 0.5 MG TAB PO SCH (00:15)
== END 2017-07-12 00:21 | disposition home or self-care (01) ==
LOC: BURERS 23:40
DX: F41.9 Anxiety disorder, unspecified (principal); E78.5 Hyperlipidemia, unspecified; F17.210 Nicotine dependence, cigarettes, uncomplicated; Z79.899 Other long term (current) drug therapy
CPT/HCPCS: 99283

== ENCOUNTER 2017-08-03 12:36 | Emergency (ER) | payer SELFPAY ==
--- NOTE | 2017-08-03 20:54 | RAD ---
RIGHT KNEE FOUR VIEWS 08/03/17 Comparison is made with a 08/04/14 study. In the interim, there has been a partial knee arthroplasty involving the medial compartment of the k nee. No acute fracture or joint effusion was seen. There is no loosening of the orthopedic hardware. The lateral joint space seems normal. IMPRESSION: No acute finding. POS: HOME
== END 2017-08-03 13:52 | disposition home or self-care (01) ==
LOC: BURERS 12:36
DX: M23.92 Unspecified internal derangement of left knee (principal); E78.5 Hyperlipidemia, unspecified; F41.9 Anxiety disorder, unspecified; F17.210 Nicotine dependence, cigarettes, uncomplicated; Z79.899 Other long term (current) drug therapy
CPT/HCPCS: 96372; J1170

== ENCOUNTER 2017-09-28 20:57 | Emergency (ER) | payer SELFPAY ==
[2017-09-28] MEDS ORDERED: Fluorescein Opthalmic Strip ONE (21:12)
[2017-09-28] MEDS ORDERED: Neomycin-Polymyxin-Hc 7.5 ML BOT ONE (21:21)
[2017-09-28] MEDS ORDERED: Ibuprofen 800 MG TAB ONE (21:40)
[2017-09-28] MEDS ORDERED: HYDROcodone/Acetaminophen 10/325 mg Tablet ONE (21:40)
== END 2017-09-28 21:44 | disposition home or self-care (01) ==
LOC: BURERS 20:57
DX: S05.01XA Injury of conjunctiva and corneal abrasion without foreign body, right eye, initial encounter (principal); E78.5 Hyperlipidemia, unspecified; F41.9 Anxiety disorder, unspecified; F17.210 Nicotine dependence, cigarettes, uncomplicated; Z79.899 Other long term (current) drug therapy; W22.8XXA Striking against or struck by other objects, initial encounter
CPT/HCPCS: 99283

== ENCOUNTER 2017-11-15 19:23 | Emergency (ER) | payer SELFPAY ==
[2017-11-15] MEDS ORDERED: HYDROcodone/Acetaminophen 10/325 mg Tablet ONE (19:53)
[2017-11-15] MEDS ORDERED: Ketorolac Tromethamine 30 MG/ML VIAL ONE (19:54)
== END 2017-11-15 20:13 | disposition home or self-care (01) ==
LOC: BURERS 19:23
DX: M54.5 Low back pain (principal); G89.29 Other chronic pain; E78.5 Hyperlipidemia, unspecified; F41.9 Anxiety disorder, unspecified; F17.210 Nicotine dependence, cigarettes, uncomplicated
CPT/HCPCS: 96372; J1885

== ENCOUNTER 2018-01-23 21:22 | Emergency (ER) | payer SELFPAY ==
[2018-01-23] MEDS ORDERED: Ondansetron HCl/PF 4 MG/2 ML Vial ONE (21:49)
[2018-01-23] MEDS ORDERED: Lidocaine Viscous Sol 2% 15 ml UD Cup ONE (21:50)
[2018-01-23] MEDS ORDERED: Famotidine In NaCl 20 mg/50 ml Premix Bag ONE (21:50)
[2018-01-23] MEDS ORDERED: Mag-Al Plus 1200 MG/1200 MG/120 MG/30 ML UDCUP ONE (21:50)
[2018-01-23 21:54] LABS: #Basophils 0.1 thou/uL (0.0-0.2); #Eosinphils 0.3 thou/uL (0.0-0.7); #Lymphocytes 5.1 thou/uL (1.20-3.40); #Monocytes 0.7 thou/uL (0.11-0.59); #Neutrophils 5.1 thou/uL (1.40-6.50); %Basophils 1.1 % (0.0-1.0); %Eosinophils 2.3 % (0.0-10.0); %Lymphocytes 45.7 % (21.0-51.0); Hemoglobin 15.8 g/dL (12.0-16.0); Mean Corpuscular HGB CONC 36.1 g/dL (32.0-36.0); Mean Corpuscular Hemoglobin 31.2 pg (27.0-31.0); Mean Corpuscular Volume 86.6 fl (81.0-99.0); Mean Platelet Volume 7.9 fL (7.4-10.4); Platelet Count 397 thou/uL (130-400); RBC Distribution Width 12.6 % (11.5-14.5); Red Blood Cell (RBC) Count 5.06 mill/uL (4.20-5.40); White Blood Cell (WBC) Count 11.3 thou/uL (4.8-10.8)
[2018-01-23 22:06] LABS: BHCG - Serum Negative (NEGATIVE); Pregs Control Background? CLEAR/WHITE (CLR/WHITE); Pregs Control Bar Appear? YES (CONTROL BAR)
[2018-01-23 22:08] LABS: ALT (SGPT) 61 U/L (8-55); AST (SGOT) 46 U/L (5-34); Albumin 4.6 g/dL (3.5-5.0); Alkaline Phosphatase 160 U/L (40-150); Anion Gap 15 mmol/L (10-20); BUN (Urea Nitrogen) 7 mg/dL (7.0-18.7); Bilirubin, Total 0.3 mg/dL (0.2-1.2); Calc. Creatinine Clearance 0 mL/min (70-130); Calcium 10.2 mg/dL (7.8-10.44); Carbon Dioxide 27 mmol/L (22-29); Chloride 105 mmol/L (98-107); Estimated GFR-MDRD Greater than 90; Globulin 3.4 g/dL (2.4-3.5); Glucose 79 mg/dL (70-105); Lipase 35 U/L (8-78); Potassium 3.5 mmol/L (3.5-5.1); Sodium 143 mmol/L (136-145)
== END 2018-01-23 22:30 | disposition home or self-care (01) ==
LOC: BURERS 21:22
DX: R11.2 Nausea with vomiting, unspecified (principal); R10.13 Epigastric pain; E78.5 Hyperlipidemia, unspecified; F41.9 Anxiety disorder, unspecified; F17.210 Nicotine dependence, cigarettes, uncomplicated
CPT/HCPCS: 80053; 83690; 84703; 85025; 96365; 96372; 96375; J2405

== ENCOUNTER 2018-01-26 00:29 | Emergency (ER) | payer SELFPAY ==
[2018-01-26] MEDS ORDERED: Metoclopramide HCl 10 MG/2 ML VIAL ONE (01:05)
[2018-01-26] MEDS ORDERED: Mag-Al Plus 1200 MG/1200 MG/120 MG/30 ML UDCUP ONE (01:06)
[2018-01-26] MEDS ORDERED: Lidocaine Viscous Sol 2% 15 ml UD Cup ONE (01:06)
[2018-01-26] MEDS ORDERED: Sodium Chloride 0.9% 100 ML ONE (01:15)
[2018-01-26] MEDS ORDERED: Pantoprazole 40 MG VIAL ONE (01:15)
[2018-01-26 01:24] LABS: Hemoglobin 14.5 g/dL (12.0-16.0); Mean Corpuscular HGB CONC 37.1 g/dL (32.0-36.0); Mean Corpuscular Hemoglobin 31.9 pg (27.0-31.0); Mean Corpuscular Volume 86.1 fl (81.0-99.0); Mean Platelet Volume 8.1 fL (7.4-10.4); Platelet Count 371 thou/uL (130-400); RBC Distribution Width 12.2 % (11.5-14.5); Red Blood Cell (RBC) Count 4.55 mill/uL (4.20-5.40); White Blood Cell (WBC) Count 10.5 thou/uL (4.8-10.8)
[2018-01-26 01:29] LABS: Bilirubin Negative (Negative); Blood, Urine Trace (Negative); Clarity Clear (Clear); Glucose, Urine (Dipstick) Negative (Negative); Leukocyte Negative (Negative); Nitrite Negative (Negative); Protein, Urine (Dipstick) Negative (Neg-Trace); Urobilinogen 0.2 mg/dL (0.2-1.0); pH, Urine 7.5 (5.0-9.0)
[2018-01-26 01:37] LABS: #Basophils 0.2 thou/uL (0.0-0.2); #Eosinphils 0.3 thou/uL (0.0-0.7); #Lymphocytes 4.6 thou/uL (1.20-3.40); #Monocytes 0.6 thou/uL (0.11-0.59); #Neutrophils 4.8 thou/uL (1.40-6.50); %Basophils 1.5 % (0.0-1.0); %Eosinophils 2.9 % (0.0-10.0); %Lymphocytes 44.1 % (21.0-51.0); %Monocytes 5.8 % (0.0-10.0); %Neutrophils 45.7 % (42.0-75.0)
[2018-01-26 01:38] LABS: PLT Morphology Comment Appears Adequate; RBC Morphology Normal
[2018-01-26 01:39] LABS: RBC/HPF 0-3 HPF (0-3); Squamous Epithelial 0-3 HPF (0-3); WBC/HPF 0-3 HPF (0-3)
[2018-01-26 01:42] LABS: Amphetamine Not Detected (NotDetected); Barbiturates Screen Not Detected (NotDetected); Benzodiazepine Screen Not Detected (NotDetected); Cocaine Metabolite Screen Not Detected (NotDetected); Medtox Control Line Valid? VALID (VALID); Methadone Not Detected (NotDetected); Methamphetamine Not Detected (NotDetected); Opiate Screen Not Detected (NotDetected); Oxycodone Screen Not Detected (NotDetected); Phencyclidine (PCP) Not Detected (NotDetected); THC/Cannabinoid Screen Not Detected (NotDetected); Tricyclic Screen Not Detected (NotDetected)
[2018-01-26 01:43] LABS: MDiff Complete? YES; Manual Diff?? NO
[2018-01-26 01:49] LABS: ALT (SGPT) 58 U/L (8-55); AST (SGOT) 43 U/L (5-34); Albumin 4.3 g/dL (3.5-5.0); Alkaline Phosphatase 159 U/L (40-150); Anion Gap 14 mmol/L (10-20); BUN (Urea Nitrogen) 9 mg/dL (7.0-18.7); Bilirubin, Total 0.3 mg/dL (0.2-1.2); Calc. Creatinine Clearance 0 mL/min (70-130); Calcium 9.7 mg/dL (7.8-10.44); Carbon Dioxide 23 mmol/L (22-29); Chloride 106 mmol/L (98-107); Estimated GFR-MDRD Greater than 90; Globulin 2.7 g/dL (2.4-3.5); Glucose 90 mg/dL (70-105); Lipase 25 U/L (8-78); Sodium 139 mmol/L (136-145)
--- NOTE | 2018-01-26 12:30 | RAD ---
ACUTE ABDOMEN SERIES: DATE: 01/26/18. FINDINGS: There is a large amount of fecal material in the colon, but there is no sign of obstruction. No dila linda bowel is seen. There is no free air. No calcifications of concern were noted. The bones and so ft tissues were unremarkable. A chest film in the series shows a normal-sized heart and clear lungs. IMPRESSION: Mild constipation POS: HOME
== END 2018-01-26 02:14 | disposition home or self-care (01) ==
LOC: BURERS 00:29
DX: K29.00 Acute gastritis without bleeding (principal); E78.5 Hyperlipidemia, unspecified; F41.9 Anxiety disorder, unspecified; F17.210 Nicotine dependence, cigarettes, uncomplicated
CPT/HCPCS: 74022; 80053; 80306; 81003; 81015; 83690; 85025; 96365; 96375; C9113; J2765; J7050

== ENCOUNTER 2018-12-17 21:41 | Emergency (ER) | payer SELFPAY | END 2018-12-17 22:09 | disposition home or self-care (01) | LOC: BURERS 21:41 | DX: R11.2 Nausea with vomiting, unspecified (principal); E78.5 Hyperlipidemia, unspecified; F41.9 Anxiety disorder, unspecified; F17.210 Nicotine dependence, cigarettes, uncomplicated | CPT/HCPCS: 96372; J0500 ==

== ENCOUNTER 2018-12-25 19:10 | Emergency (ER) | payer SELFPAY ==
--- NOTE | 2018-12-25 22:57 | RAD ---
RIGHT KNEE FOUR VIEWS: 12/25/18 Comparison is made with a 08/04/14 study. In the interim, the patient has had a partial knee replacement on the medial side of the joint. No ac [place] fracture was identified. There is a small gap of space between the medial femoral condyle and the metallic part of the femoral component. I do not know if there is an intervening spacer or if this i s loosening. 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 There does appear to be a small joint effusion. The patella ap pears intact. IMPRESSION: 1. Small joint effusion. 2. Slight increased space between the metallic part of the femoral component and the medial femo ral condyle. This may or may not be abnormal. If postoperative films are available, they could be obt ained for comparison. Code T POS: HOME
== END 2018-12-25 20:04 | disposition home or self-care (01) ==
LOC: BURERS 19:10
DX: S83.91XA Sprain of unspecified site of right knee, initial encounter (principal); E78.5 Hyperlipidemia, unspecified; F41.9 Anxiety disorder, unspecified; F17.210 Nicotine dependence, cigarettes, uncomplicated; Z79.899 Other long term (current) drug therapy; W22.8XXA Striking against or struck by other objects, initial encounter

== ENCOUNTER 2019-04-21 09:38 | Emergency (ER) | payer SELFPAY ==
[2019-04-21] MEDS ORDERED: Ketorolac Tromethamine 60 MG/2 ML VIAL ONE (10:13)
[2019-04-21] MEDS ORDERED: Cyclobenzaprine 10 MG TAB ONE (10:13)
[2019-04-21] MEDS ORDERED: predniSONE 20 MG TAB ONE (10:57)
[2019-04-21] MEDS ORDERED: HYDROcodone/Acetaminophen 5/325 mg Tablet ONE (10:57)
== END 2019-04-21 11:08 | disposition home or self-care (01) ==
LOC: BURERS 09:38
DX: M54.16 Radiculopathy, lumbar region (principal); E78.5 Hyperlipidemia, unspecified; F41.9 Anxiety disorder, unspecified; F17.210 Nicotine dependence, cigarettes, uncomplicated; Z79.899 Other long term (current) drug therapy
CPT/HCPCS: 96372; J1885; J7512

== ENCOUNTER 2019-07-12 18:19 | Emergency (ER) | payer SELFPAY | END 2019-07-12 18:47 | disposition home or self-care (01) | LOC: BURERS 18:19 | DX: M25.562 Pain in left knee (principal); E78.5 Hyperlipidemia, unspecified; E78.00 Pure hypercholesterolemia, unspecified; F41.9 Anxiety disorder, unspecified; F17.210 Nicotine dependence, cigarettes, uncomplicated; Z79.899 Other long term (current) drug therapy | CPT/HCPCS: 99281 ==

== ENCOUNTER 2021-10-10 18:45 | Emergency (ER) | payer OTHER, SELFPAY ==
[2021-10-10] MEDS ORDERED: Ketorolac Tromethamine 30 MG/ML VIAL ONE (20:36)
[2021-10-10] MEDS ORDERED: Ondansetron PF 4 MG/2 ML Vial ONE (20:36)
[2021-10-10 20:44] LABS: #Basophils 0.1 thou/uL (0.0-0.2); #Eosinphils 0.2 thou/uL (0.0-0.7); #Lymphocytes 2.7 thou/uL (1.20-3.40); #Monocytes 0.7 thou/uL (0.11-0.59); #Neutrophils 6.9 thou/uL (1.40-6.50); %Basophils 0.9 % (0.0-1.0); %Eosinophils 1.9 % (0.0-10.0); %Lymphocytes 25.8 % (21.0-51.0); %Monocytes 6.9 % (0.0-10.0); %Neutrophils 64.5 % (42.0-75.0); Hemoglobin 14.8 g/dL (12.0-16.0); Mean Corpuscular HGB CONC 33.4 g/dL (32.0-36.0); Mean Corpuscular Hemoglobin 28.1 pg (27.0-31.0); Mean Corpuscular Volume 84.1 fL (78.0-98.0); Mean Platelet Volume 7.7 fL (7.4-10.4); Platelet Count 468 thou/uL (130-400); RBC Distribution Width 13.7 % (11.5-14.5); Red Blood Cell (RBC) Count 5.27 mill/uL (4.20-5.40); White Blood Cell (WBC) Count 10.7 thou/uL (4.8-10.8)
[2021-10-10 20:49] LABS: Bilirubin Negative (Negative); Blood, Urine Negative (Negative); Clarity Clear (Clear); Glucose, Urine (Dipstick) Negative (Negative); Ketone, Urine Negative (Negative); Leukocyte Negative (Negative); Nitrite Negative (Negative); Protein, Urine (Dipstick) Negative (Neg-Trace)
[2021-10-10 20:59] LABS: ALT (SGPT) 94 U/L (8-55); AST (SGOT) 120 U/L (5-34); Albumin 4.3 g/dL (3.5-5.0); Alkaline Phosphatase 225 U/L (40-110); Anion Gap 14 mmol/L (10-20); BUN (Urea Nitrogen) 5 mg/dL (7.0-18.7); Bilirubin, Total 0.5 mg/dL (0.2-1.2); CK (CPK) 127 U/L (29-168); Calc. Creatinine Clearance 0 mL/min (70-130); Carbon Dioxide 26 mmol/L (22-29); Chloride 103 mmol/L (98-107); Globulin 3.3 g/dL (2.4-3.5); Glucose 100 mg/dL (70-105); Potassium 3.5 mmol/L (3.5-5.1); Protein, Total 7.6 g/dL (6.0-8.3); Sodium 139 mmol/L (136-145)
[2021-10-10] MEDS ORDERED: Morphine 4 MG/ML VIAL ONE (21:17)
[2021-10-10] MEDS ORDERED: Cyclobenzaprine 10 MG TAB ONE (22:28)
== END 2021-10-10 22:38 | disposition home or self-care (01) ==
LOC: BURERS 18:45
DX: M79.10 Myalgia, unspecified site (principal); R74.8 Abnormal levels of other serum enzymes; E78.5 Hyperlipidemia, unspecified; F17.210 Nicotine dependence, cigarettes, uncomplicated
CPT/HCPCS: 80053; 81003; 82550; 85025; 96374; 96375; J1885; J2270; J2405

== ENCOUNTER 2021-11-14 19:21 | Emergency (ER) | payer OTHER ==
[2021-11-15 18:07] LABS: SARS-CoV-2 PCR by NAA Not Detected (NotDetected)
== END 2021-11-14 20:10 | disposition home or self-care (01) ==
LOC: BURERS 19:21
DX: B34.9 Viral infection, unspecified (principal); Z20.822 Contact with and (suspected) exposure to COVID-19
CPT/HCPCS: 87804; 99283; U0003; U0005

== ENCOUNTER 2022-01-24 18:50 | Emergency (ER) | payer OTHER ==
[2022-01-24] MEDS ORDERED: Cephalexin 250 MG CAP ONE (19:15)
== END 2022-01-24 19:30 | disposition home or self-care (01) ==
LOC: BURERS 18:50
DX: L02.212 Cutaneous abscess of back [any part, except buttock and flank] (principal); F17.210 Nicotine dependence, cigarettes, uncomplicated
CPT/HCPCS: 99406

== ENCOUNTER 2022-02-27 17:36 | Emergency (ER) | payer OTHER ==
[2022-02-27] MEDS ORDERED: Pantoprazole 40 MG VIAL ONE (18:54)
[2022-02-27] MEDS ORDERED: Ondansetron PF 4 MG/2 ML Vial ONE (18:54)
[2022-02-27 19:05] LABS: #Basophils 0.1 thou/uL (0.0-0.2); #Eosinphils 0.1 thou/uL (0.0-0.7); #Lymphocytes 1.3 thou/uL (1.20-3.40); #Monocytes 0.7 thou/uL (0.11-0.59); #Neutrophils 4.3 thou/uL (1.40-6.50); %Basophils 1.4 % (0.0-1.0); %Lymphocytes 20.1 % (21.0-51.0); %Monocytes 10.1 % (0.0-10.0); %Neutrophils 66.4 % (42.0-75.0); Hemoglobin 14.2 g/dL (12.0-16.0); Mean Corpuscular HGB CONC 32.8 g/dL (32.0-36.0); Mean Corpuscular Hemoglobin 27.9 pg (27.0-31.0); Mean Corpuscular Volume 85.2 fL (78.0-98.0); Mean Platelet Volume 8.2 fL (7.4-10.4); Platelet Count 295 thou/uL (130-400); RBC Distribution Width 14.9 % (11.5-14.5); Red Blood Cell (RBC) Count 5.09 mill/uL (4.20-5.40); White Blood Cell (WBC) Count 6.5 thou/uL (4.8-10.8)
[2022-02-27 19:10] LABS: ALT (SGPT) 86 U/L (8-55); AST (SGOT) 125 U/L (5-34); Albumin 4.3 g/dL (3.5-5.0); Alkaline Phosphatase 185 U/L (40-110); Anion Gap 15 mmol/L (10-20); BUN (Urea Nitrogen) 6 mg/dL (7.0-18.7); Bilirubin, Total 0.3 mg/dL (0.2-1.2); Calc. Creatinine Clearance 0 mL/min (70-130); Calcium 9.2 mg/dL (7.8-10.44); Carbon Dioxide 24 mmol/L (22-29); Chloride 102 mmol/L (98-107); Globulin 3.2 g/dL (2.4-3.5); Glucose 93 mg/dL (70-105); Lipase 13 U/L (8-78); Potassium 3.9 mmol/L (3.5-5.1); Protein, Total 7.5 g/dL (6.0-8.3); Sodium 137 mmol/L (136-145)
[2022-02-27 19:25] LABS: Bilirubin Negative (Negative); Blood, Urine Trace (Negative); Clarity Clear (Clear); Glucose, Urine (Dipstick) Negative (Negative); Ketone, Urine Negative (Negative); Leukocyte Negative (Negative); Nitrite Negative (Negative); Protein, Urine (Dipstick) Negative (Neg-Trace)
[2022-02-27 20:00] LABS: RBC/HPF 0-3 HPF (0-3); Squamous Epithelial 0-3 HPF (0-3); WBC/HPF 0-3 HPF (0-3)
[2022-02-27 20:01] LABS: Bacteria/HPF None Seen HPF (None Seen)
== END 2022-02-27 21:00 | disposition home or self-care (01) ==
LOC: BURERS 17:36
DX: K75.9 Inflammatory liver disease, unspecified (principal); R11.2 Nausea with vomiting, unspecified; R19.7 Diarrhea, unspecified; K31.84 Gastroparesis; F17.210 Nicotine dependence, cigarettes, uncomplicated; Z20.822 Contact with and (suspected) exposure to COVID-19
CPT/HCPCS: 71045; 80053; 81003; 81015; 83690; 84484; 85025; 87804; 93005; 96374; 96375; C9113; J2405; U0003; U0005

== ENCOUNTER 2022-04-17 15:23 | Emergency (ER) | payer OTHER ==
[2022-04-17 16:20] LABS: #Basophils 0.1 thou/uL (0.0-0.2); #Eosinphils 0.2 thou/uL (0.0-0.7); #Lymphocytes 3.7 thou/uL (1.20-3.40); #Monocytes 0.6 thou/uL (0.11-0.59); #Neutrophils 4.1 thou/uL (1.40-6.50); %Basophils 1.3 % (0.0-1.0); %Eosinophils 2.5 % (0.0-10.0); %Lymphocytes 42.3 % (21.0-51.0); %Monocytes 6.4 % (0.0-10.0); %Neutrophils 47.5 % (42.0-75.0); Hemoglobin 15.2 g/dL (12.0-16.0); Mean Corpuscular HGB CONC 33.6 g/dL (32.0-36.0); Mean Corpuscular Hemoglobin 28.1 pg (27.0-31.0); Mean Corpuscular Volume 83.6 fL (78.0-98.0); Mean Platelet Volume 7.7 fL (7.4-10.4); Platelet Count 438 thou/uL (130-400); RBC Distribution Width 15.2 % (11.5-14.5); Red Blood Cell (RBC) Count 5.42 mill/uL (4.20-5.40); White Blood Cell (WBC) Count 8.7 thou/uL (4.8-10.8)
[2022-04-17 16:32] LABS: Anion Gap 17 mmol/L (10-20); BUN (Urea Nitrogen) 6 mg/dL (7.0-18.7); Calc. Creatinine Clearance 0 mL/min (70-130); Carbon Dioxide 25 mmol/L (22-29); Chloride 101 mmol/L (98-107); Potassium 4.3 mmol/L (3.5-5.1); Sodium 139 mmol/L (136-145)
[2022-04-17 16:33] LABS: ALT (SGPT) 70 U/L (8-55); AST (SGOT) 62 U/L (5-34); Albumin 4.6 g/dL (3.5-5.0); Alkaline Phosphatase 181 U/L (40-110); Bilirubin, Total 0.4 mg/dL (0.2-1.2); Calcium 9.7 mg/dL (7.8-10.44); Globulin 3.6 g/dL (2.4-3.5); Glucose 85 mg/dL (70-105); Protein, Total 8.2 g/dL (6.0-8.3)
== END 2022-04-17 17:16 | disposition home or self-care (01) ==
LOC: BURERS 15:23
DX: S09.90XA Unspecified injury of head, initial encounter (principal); S20.211A Contusion of right front wall of thorax, initial encounter; K31.84 Gastroparesis; F17.210 Nicotine dependence, cigarettes, uncomplicated; W18.30XA Fall on same level, unspecified, initial encounter; Y93.01 Activity, walking, marching and hiking
CPT/HCPCS: 36416; 70450; 71045; 72125; 72128; 80053; 84484; 85025; 93005

== ENCOUNTER 2022-06-25 12:20 | Emergency (ER) | payer OTHER ==
[2022-06-25] MEDS ORDERED: Ibuprofen 800 MG TAB ONE (13:02)
== END 2022-06-25 14:23 | disposition home or self-care (01) ==
LOC: BURERS 12:20
DX: J02.9 Acute pharyngitis, unspecified (principal); R52 Pain, unspecified; R50.9 Fever, unspecified; R19.7 Diarrhea, unspecified; F17.210 Nicotine dependence, cigarettes, uncomplicated; Z20.822 Contact with and (suspected) exposure to COVID-19
CPT/HCPCS: 87081; 87430; 87804; 99283; U0003; U0005

== ENCOUNTER 2022-08-28 17:21 | Emergency (ER) | payer OTHER ==
[2022-08-28] MEDS ORDERED: predniSONE 20 MG TAB ONE (18:57)
[2022-08-28] MEDS ORDERED: Ibuprofen 800 MG TAB ONE (18:57)
== END 2022-08-28 19:07 | disposition home or self-care (01) ==
LOC: BURERS 17:21
DX: J02.9 Acute pharyngitis, unspecified (principal); K31.84 Gastroparesis; F17.210 Nicotine dependence, cigarettes, uncomplicated; Z20.822 Contact with and (suspected) exposure to COVID-19
CPT/HCPCS: 87081; 87430; 87804; 99283; J7512; U0003; U0005

== ENCOUNTER 2022-09-02 20:35 | Emergency (ER) | payer OTHER | END 2022-09-02 21:30 | disposition home or self-care (01) | LOC: BURERS 20:35 | DX: B34.9 Viral infection, unspecified (principal) | CPT/HCPCS: 99283 ==

== ENCOUNTER 2022-10-31 11:29 | Emergency (ER) | payer OTHER ==
[2022-10-31] MEDS ORDERED: Ibuprofen 800 MG TAB ONE (11:56)
== END 2022-10-31 12:35 | disposition home or self-care (01) ==
LOC: BURERS 11:29
DX: J02.9 Acute pharyngitis, unspecified (principal); H11.32 Conjunctival hemorrhage, left eye; F17.290 Nicotine dependence, other tobacco product, uncomplicated
CPT/HCPCS: 87081; 87430; 87804; 99283

== ENCOUNTER 2022-11-17 11:22 | Emergency (ER) | payer OTHER ==
[2022-11-17] MEDS ORDERED: Ibuprofen 200 MG TAB ONE (11:43)
[2022-11-17] MEDS ORDERED: Azithromycin 250 MG TAB ONE (12:22)
== END 2022-11-17 12:26 | disposition home or self-care (01) ==
LOC: BURERS 11:22
DX: J02.9 Acute pharyngitis, unspecified (principal)
CPT/HCPCS: 87081; 87430; 99283

== ENCOUNTER 2024-01-22 18:22 | Emergency (ER) | payer BC, OTHER | END 2024-01-22 18:45 | disposition home or self-care (01) | LOC: BURERS 18:22 | DX: R43.9 Unspecified disturbances of smell and taste (principal); E11.9 Type 2 diabetes mellitus without complications; F17.210 Nicotine dependence, cigarettes, uncomplicated; F17.290 Nicotine dependence, other tobacco product, uncomplicated | CPT/HCPCS: 99283 ==

== ENCOUNTER 2024-05-07 17:29 | Emergency (ER) | payer OTHER ==
[2024-05-07 17:59] LABS: #Basophils 0.1 thou/uL (0.0-0.2); #Eosinphils 0.4 thou/uL (0.0-0.7); #Lymphocytes 3.3 thou/uL (1.20-3.40); #Monocytes 0.5 thou/uL (0.11-0.59); #Neutrophils 5.1 thou/uL (1.40-6.50); %Eosinophils 4.5 % (0.0-10.0); %Monocytes 5.4 % (0.0-10.0); %Neutrophils 54.1 % (42.0-75.0); Hematocrit 37.4 % (36.0-47.0); Hemoglobin 12.2 g/dL (12.0-16.0); Mean Corpuscular HGB CONC 32.6 g/dL (32.0-36.0); Mean Corpuscular Hemoglobin 27.4 pg (27.0-31.0); Mean Corpuscular Volume 84.1 fl (78.0-98.0); Platelet Count 293 10x3/uL (130-400); RBC Distribution Width 13.4 % (11.5-14.5); Red Blood Cell (RBC) Count 4.45 mill/uL (4.20-5.40); White Blood Cell (WBC) Count 9.4 10x3/uL (4.8-10.8)
[2024-05-07 18:15] LABS: Bilirubin Negative (Negative); Blood, Urine Negative (Negative); Clarity Clear (Clear); Glucose, Urine (Dipstick) Negative (Negative); Ketone, Urine Negative (Negative); Leukocyte Negative (Negative); Nitrite Negative (Negative); Protein, Urine (Dipstick) Negative (Neg-Trace); Urobilinogen 0.2 mg/dL (Less than 2); pH, Urine 6.5 (5.0-9.0)
[2024-05-07 18:21] LABS: ALT (SGPT) 88 U/L (8-55); AST (SGOT) 89 U/L (5-34); Albumin 4.4 g/dL (3.5-5.0); Alkaline Phosphatase 130 U/L (40-110); Anion Gap 12 mmol/L (10-20); BUN (Urea Nitrogen) 13 mg/dL (7.0-18.7); Bilirubin, Total 0.3 mg/dL (0.2-1.2); Calc. Creatinine Clearance 0 mL/min (70-130); Calcium 9.5 mg/dL (7.8-10.44); Carbon Dioxide 21 mmol/L (22-29); Chloride 109 mmol/L (98-107); Estimated GFR 101; Globulin 2.7 g/dL (2.4-3.5); Glucose 100 mg/dL (70-105); Lipase 23 U/L (8-78); Magnesium 2.2 mg/dL (1.6-2.6); Potassium 3.6 mmol/L (3.5-5.1); Protein, Total 7.1 g/dL (6.0-8.3); Sodium 138 mmol/L (136-145); Troponin I Less than 0.010 ng/mL (< 0.028)
[2024-05-07 18:27] LABS: Bacteria/HPF Rare-Few HPF (None Seen); CAUTI Indications for Culture Dysuria,urgency,freq; RBC/HPF None Seen HPF (0-3); Squamous Epithelial 0-3 HPF (0-3); WBC/HPF None Seen HPF (0-3)
[2024-05-07 18:28] LABS: Urine Culture Reflex No No
== END 2024-05-07 19:00 | disposition home or self-care (01) ==
LOC: BURERS 17:29
DX: R55 Syncope and collapse (principal); R74.01 Elevation of levels of liver transaminase levels; E11.9 Type 2 diabetes mellitus without complications; F17.210 Nicotine dependence, cigarettes, uncomplicated; F17.290 Nicotine dependence, other tobacco product, uncomplicated; Z79.84 Long term (current) use of oral hypoglycemic drugs
CPT/HCPCS: 71045; 80053; 81001; 83605; 83690; 83735; 84443; 84484; 85025; 93005; 96360

== ENCOUNTER 2025-06-22 17:50 | Emergency (ER) | payer OTHER ==
[2025-06-22 18:29] LABS: #Basophils 0.1 thou/uL (0.0-0.2); #Eosinophils 0.4 thou/uL (0.0-0.7); #Lymphocytes 2.3 thou/uL (1.20-3.40); #Monocytes 0.3 thou/uL (0.11-0.59); #Neutrophils 2.8 thou/uL (1.40-6.50); %Basophils 0.9 % (0.0-1.0); %Eosinophils 6.2 % (0.0-10.0); %Lymphocytes 39.8 % (21.0-51.0); %Monocytes 5.8 % (0.0-10.0); %Neutrophils 47.3 % (42.0-75.0); Hematocrit 31.5 % (36.0-47.0); Hemoglobin 10.6 g/dL (12.0-16.0); Mean Corpuscular Hemoglobin 26.1 pg (27.0-31.0); Mean Corpuscular Volume 77.6 fl (78.0-98.0); Platelet Count 263 10x3/uL (130-400); Red Blood Cell (RBC) Count 4.06 mill/uL (4.20-5.40); White Blood Cell (WBC) Count 5.9 10x3/uL (4.8-10.8)
[2025-06-22 18:47] LABS: ALT (SGPT) 46 U/L (Less than 34); AST (SGOT) 93 U/L (11-34); Albumin 3.6 g/dL (3.1-4.5); Alkaline Phosphatase 134 U/L (40-110); Anion Gap 15 mmol/L (10-20); BUN (Urea Nitrogen) 6 mg/dL (7.0-18.7); Bilirubin, Total 0.3 mg/dL (0.3-1.2); Calc. Creatinine Clearance 0 mL/min (70-130); Calcium 8.5 mg/dL (7.8-10.44); Carbon Dioxide 18 mmol/L (22-29); Chloride 110 mmol/L (98-107); Globulin 3.1 g/dL (2.4-3.5); Glucose 214 mg/dL (70-105); Potassium 3.7 mmol/L (3.5-5.1); Sodium 139 mmol/L (136-145)
[2025-06-22 18:48] LABS: Troponin I Less than 0.010 ng/mL (< 0.028)
== END 2025-06-22 20:47 | disposition short-term general hospital (02) ==
LOC: BURERS 17:50
DX: R60.0 Localized edema (principal); Z03.89 Encounter for observation for other suspected diseases and conditions ruled out; E11.9 Type 2 diabetes mellitus without complications; M79.7 Fibromyalgia; F17.210 Nicotine dependence, cigarettes, uncomplicated; F17.290 Nicotine dependence, other tobacco product, uncomplicated; Z79.84 Long term (current) use of oral hypoglycemic drugs
CPT/HCPCS: 71045; 80053; 83880; 84484; 85025; 93005

== ENCOUNTER 2025-09-08 17:20 | Emergency (ER) | payer OTHER ==
[2025-09-08] MEDS ORDERED: Lidocaine 1% (PF) 30 ML VIAL ONE (17:47)
== END 2025-09-08 18:28 | disposition home or self-care (01) ==
LOC: BURERS 17:20
DX: M62.838 Other muscle spasm (principal); R51.9 Headache, unspecified; E11.9 Type 2 diabetes mellitus without complications; F17.210 Nicotine dependence, cigarettes, uncomplicated; F17.290 Nicotine dependence, other tobacco product, uncomplicated; Z79.899 Other long term (current) drug therapy
CPT/HCPCS: 20551; J2003

== ENCOUNTER 2025-09-25 22:49 | Emergency (ER) | payer OTHER | END 2025-09-26 00:04 | disposition home or self-care (01) | LOC: BURERS 22:49 | DX: R51.9 Headache, unspecified (principal); E11.9 Type 2 diabetes mellitus without complications; M79.7 Fibromyalgia; F17.210 Nicotine dependence, cigarettes, uncomplicated; F17.290 Nicotine dependence, other tobacco product, uncomplicated | CPT/HCPCS: 96372; 99283; J1885 ==